=== PATIENT | male | born 1990 | race Asian ===

== ENCOUNTER 2018-12-05 09:34 | Day surgery (SDC) | payer OTHER ==
[~2018-12-05] VITALS: Ht 172.7 cm; Wt 95.0 kg
[2018-12-05] VITALS (10 sets, daily range): BP systolic 116–145; BP diastolic 75–93
[~2018-12-05 09:34] MED LIST: Clindamycin 600mg/D5W 50ml IV ONE; celeBREX 200mg Cap **SURGERY PATIENTS ONLY ORAL ONE; oxyCONTIN 20mg tab ORAL ONE
[2018-12-05] MEDS ORDERED: NKM (10:08)
[2018-12-05] MEDS ORDERED: oxyCONTIN 20mg tab ORAL ONE (10:26)
[2018-12-05] MEDS ORDERED: celeBREX 200mg Cap **SURGERY PATIENTS ONLY ORAL ONE (10:26)
[2018-12-05] MEDS ORDERED: fentaNYL 100 mcg/2 mL IV ONE (13:00)
[2018-12-05] MEDS ORDERED: Midazolam 2mg/2ml Inj ONE (13:00)
[2018-12-05] MEDS ORDERED: Kenalog-40 1ml Vial ONE (13:39)
[2018-12-05] MEDS ORDERED: Duramorph PF 5mg/10ml amp ONE (13:39)
[2018-12-05] MEDS ORDERED: Ketorolac 30mg Inj ONE (13:39)
[2018-12-05] MEDS ORDERED: EPINEPHrine 1mg/1ml Amp ONE (13:39)
[2018-12-05] MEDS ORDERED: Bupivacaine w/Epi 0.25% 30ml Vial INJ ONE (13:40)
[2018-12-05] MEDS ORDERED: Duramorph PF 5mg/10ml amp EPIDUR ONE (14:00)
--- NOTE | 2018-12-05 14:12 | Pre-Procedure Note/Attestation ---
Pre-Procedure Note/Attestation Complete Prior to Procedure Planned Procedure: left Procedure Narrative: shoulder arthroscopy, sad, possible rc repair Indications for Procedure Pre-Operative Diagnosis: left shoulder rc tear, impingement Attestation I attest that I discussed the nature of the procedure; its benefits; risks and complications; and alternatives (and the risks and benefits of such alternatives ), prior to the procedure, with the patient (or the patient's legal outside energy sales representatives). I attest that, if there was a reasonable possibility of needing a blood transfusion, the patient (or the patient's legal outside energy sales representatives) was given the [facility] standardized written summary, pursuant to the Shamar Hutton Blood Safety Act ([place] Health and Safety Code # 1645, as amended). I attest that I re-evaluated the patient just prior to the surgery and that there has been no change in the patient's H&P, except as documented below: Sean Gutierres MD December 05, 2018 14:12
--- NOTE | 2018-12-05 14:12 | Operative Note - PDOC ---
Operative Note Operative Note Pre-op Diagnosis: left shoulder rc tear, impingement Procedure: see op report Post-op Diagnosis: same as pre-op plus Operative Findings: consistent w/pre-op dx studies Anesthesia: regional Specimen: none Complications: none Condition: stable Estimated Blood Loss: none Implant(s) used?: No Sean Gutierres MD December 05, 2018 14:12
[2018-12-05] MEDS ORDERED: Tylenol #3 tab (300mg/30mg) ORAL PRN (14:15)
[2018-12-05] MEDS ORDERED: HYDROcodone/Acetamin 5/325 tab ORAL PRN (14:15)
[2018-12-05] MEDS ORDERED: HYDROmorphone 1mg/ml Carpuject SUBQ PRN (14:15)
[2018-12-05] MEDS ORDERED: D5 1/2NS 1,000 ML IV SCH (14:15)
[2018-12-05] MEDS ORDERED: LR 1000ml 1,000 ML IVLG SCH (15:09)
--- NOTE | 2018-12-05 15:09 | Anethesia Preoperative Eval ---
Anesthesia Pre-op PMH/ROS General Date of Evaluation: December 05, 2018 Time of Evaluation: 13:40 Anesthesiologist: David ASA Score: ASA 2 Mallampati Score Class I : Soft palate, uvula, fauces, pillars visible Class II: Soft palate, uvula, fauces visible Class III: Soft palate, base of uvula visible Class IV: Only hard plate visible Mallampati Classification: Class II Surgeon: Bhavik Diagnosis: L shoulder pain Surgical Procedure: L shoulder arthroscopy Anesthesia History: none Family History: no anesthesia problems Allergies: Coded Allergies: AMOXICILLIN (Verified Allergy, Severe, 12/05/18) HIVES CLAVULANIC ACID (Verified Allergy, Severe, 12/05/18) HIVES Medications: see eMAR Patient NPO?: Yes Past Medical History Cardiovascular: Denies: HTN, CAD, [place], valve dz, arrhythmia, other Pulmonary: Denies: asthma, COPD, [place], other Gastrointestinal/Genitourinary: Reports: GERD - mild; Denies: CRI, ESRD, other Neurologic/Psychiatric: Denies: dementia, CVA, depression/anxiety, TIA, other Endocrine: Denies: DM, hypothyroidism, steroids, other HEENT: Denies: cataract (L), cataract (R), glaucoma, [place] (L), [place] (R), other Hematology/Immune: Denies: anemia, DVT, bleeding disorder, other Musculoskeletal/Integumentary: Denies: OA, RA, DJD, DDD, edema, other Other: other - overweight PMH Narrative: as above PSxH Narrative: Dental Sx Anesthesia Pre-op Phys. Exam Physician Exam Last Vital Signs Date Time Temp Pulse Resp B/P (MAP) Pulse Ox O2 Delivery O2 Flow Rate FiO2 12/05/18 10:29 97.9 56 18 116/75 97 Room Air Constitutional: NAD Neurologic: CN 2-12 intact Cardiovascular: RRR, no M/R/G Respiratory: CTA Gastrointestinal: S/NT/ND Airway Exam Mallampati Score: Class II MO: full Neck: flexible ROM: full Teeth: intact Dentures: no upper, no lower Anesthesia Pre-op A/P Labs see chart Studies Pre-op Studies: EKG - NSR Risk Assessment & Plan Assessment: ASA 2 Plan: GA with LMA L brachial plexus block for post op pain control Status Change Before Surgery: No Pre-Antibiotics Drug: Ancef 1gr. Given Within 1 Hr of Incision: Yes Time Given: 14:35 Fransico Hernandez MD December 05, 2018 15:09
[2018-12-05] MEDS ORDERED: Ketorolac 30mg Inj IV PRN (15:15)
[2018-12-05] MEDS ORDERED: Meperidine 50mg/ml Inj(FOR RIGORS ONLY) IV PRN (15:15)
[2018-12-05] MEDS ORDERED: DiphenhydrAMINE 50mg/ml Inj IVP PRN (15:15)
[2018-12-05] MEDS ORDERED: Metoclopramide 10mg/2ml Inj IVP PRN (15:15)
--- NOTE | 2018-12-05 15:45 | Immediate Post-Op Evaluation ---
Immediate Post-Op Evalulation Immediate Post-Op Evalulation Procedure: L shoulder arthroscopy with subacromion decompression Date of Evaluation: December 05, 2018 Time of Evaluation: 15:45 IV Fluids: 1000 Blood Products: none Estimated Blood Loss: min Urinary Output: none Blood Pressure Systolic: 145 Blood Pressure Diastolic: 83 Pulse Rate: 85 Respiratory Rate: 20 O2 Sat by Pulse Oximetry: 99 Temperature (Fahrenheit): 97.8 Pain Score (1-10): 2 Nausea: No Vomiting: No Complications none Patient Status: awake, patent, none Hydration Status: adequate Fransico Hernandez MD December 05, 2018 15:45
--- NOTE | 2018-12-05 22:15 | Operative Note - Dictated ---
DATE OF OPERATION: 12/05/2018 PREOPERATIVE DIAGNOSES: 1. Left shoulder partial rotator cuff tear. 2. Right shoulder impingement syndrome. POSTOPERATIVE DIAGNOSES: 1. Left shoulder partial rotator cuff tear. 2. Right shoulder impingement syndrome. PROCEDURES: 1. Left shoulder diagnostic arthroscopy. 2. Right shoulder subacromial decompression bursectomy. SURGEON: Sean Gutierres M.D. ANESTHESIA: Interscalene with general. INDICATION FOR PROCEDURE: The patient with generalized progressive left shoulder pain. He subsequently had an MRI, which showed a partial possible full-thickness rotator cuff tear. He failed conservative treatment and elected to undergo left shoulder arthroscopy, possible rotator cuff repair versus debridement. Risks, limitations, expectations, complications of procedure were discussed in detail. All questions addressed. DESCRIPTION OF PROCEDURE: After informed consent was obtained, the patient was brought to the operating room. The patient was placed under monitored anesthesia control. Left shoulder was prepped and draped in a sterile manner. Time-out was performed. A stab incision was then made. Trocar was introduced into the glenohumeral joint. Systematic tour of the shoulder was performed. The anterior labrum was intact along with the superior labrum. The biceps tendon appeared to be intact. The subscapularis was intact. The undersurface rotator cuff was grossly intact. The camera was then placed in subacromial space. There was hypertrophic bursal tissue and significant acromial spur. Acromioplasty was started from lateral to medial and completed from posterior to anterior. The bursectomy was completed. Once that was done, the instruments were removed. Portal sites were closed with 3-0 Monocryl sutures. Steri-Strips and a sterile dressing were applied. The patient was awoken and taken to recovery room with stable vital signs. ESTIMATED BLOOD LOSS: Minimal. COMPLICATIONS: None. SPECIMENS: None. IMPLANTS: None. Sean Gutierres M.D. DR: JESS JOB#: [id number] CC:
[2018-12-08 08:00] VITALS: BP 133/58
--- NOTE | 2018-12-08 08:00 | 48 Hour Post Anesthesia Eval ---
Post Anesthesia Evaluation Procedure: L shoulder arthroscopy with subacromion decompression Date of Evaluation: December 05, 2018 Time of Evaluation: 16:50 Blood Pressure Systolic: 133 0: 58 Pulse Rate: 74 Respiratory Rate: 22 Temperature (Fahrenheit): 97.6 O2 Sat by Pulse Oximetry: 98 Airway: patent Nausea: No Vomiting: No Pain Intensity: 1 Hydration Status: adequate Cardiopulmonary Status: stable Mental Status/LOC: patient returned to baseline Follow-up Care/Observations: n/a Post-Anesthesia Complications: none Follow-up care needed: ready to discharge Fransico Hernandez MD December 08, 2018 08:00
== END 2018-12-05 17:10 | disposition home or self-care (01) ==
LOC: SUR 09:34
DX: M75.42 Impingement syndrome of left shoulder (principal); E66.3 Overweight; M54.2 Cervicalgia; M54.5 Low back pain; Z68.31 Body mass index [BMI] 31.0-31.9, adult; Z88.0 Allergy status to penicillin; K21.9 Gastro-esophageal reflux disease without esophagitis; Z88.8 Allergy status to other drugs, medicaments and biological substances
CPT/HCPCS: 29822; J0171; J1885; J2250; J3010; J3301; 94003; 94150